=== PATIENT | female | born 1945 | race Caucasian/White ===

== ENCOUNTER → 2016-08-21 | Outpatient (CLI) | payer MEDICARE, OTHER ==
--- NOTE | 2016-08-21 11:02 | CT ---
EXAM DESCRIPTION: CT CHEST WITH IV CONTRAST; CT ABDOMEN PELVIS WITHOUT THEN WITH IV CONTRAST CLINICAL HISTORY: MALIGNANT NEOPLASM OF ASCENDING COLON COMPARISON: CT abdomen pelvis performed on February 04, 2016 TECHNIQUE: CT chest abdomen pelvis was performed with IV contrast. FINDINGS: CT chest: A right-sided MediPort device is present with its tip in the SVC. There are mural calcifications in the thoracic aorta without aneurysm or dissection. No mediastinal or hilar adenopathy. No pleural or pericardial effusion. The central airways are clear. There is no airspace consolidation or lung mass. No suspicious lung nodule is identified. There is no lytic or sclerotic bone lesion. CT abdomen pelvis: There is a 3.9 cm fusiform infrarenal abdominal aortic aneurysm without acute complication, stable or only minimally increased in size from January,. There is no adenopathy, ascites or pneumoperitoneum. No dilated small bowel loops. Postoperative changes are noted in the colon without colonic wall thickening or pericolonic inflammation. The gallbladder is either collapsed or surgically absent. The liver, spleen, pancreas, adrenals and kidneys are unremarkable. There is no lytic or sclerotic bone lesion. Degenerative changes are noted in the lumbar spine at multiple levels including mild scoliosis. IMPRESSION: Postoperative changes in the colon, but no evidence of recurrent or metastatic disease in the chest, abdomen or pelvis. 3.9 cm infrarenal abdominal aortic aneurysm, stable or only slightly increased in size from January,. AAA Size: Follow-upRecommendation1: 2.6-2.9 cm Every 5 years2 3.0-3.4 cm Every 3 years 3.5-3.9 cm Every 1 year 4.0-4.4 cm Every 1 year, vascularconsultation recommended 4.5-5.4 cm Every 6 months,vascular consultation recommended >5.5cm Vascularsurgery consultation recommended 1. J Vasc Surg. 2009Oct;50(4 Suppl):S2-49 2. For aortas with maximum diameter of 2.6-2.9 cmmeeting the criteria for AAA (>50% of proximal normal segment) Electronically signed by: Andrés Momin DO 08/21/2016 10:59
== END ==
LOC: CT 09:33
PROVIDERS: ATTEND Internal Medicine Hematology & Oncology
DX: C18.2 Malignant neoplasm of ascending colon (principal); I71.4 Abdominal aortic aneurysm, without rupture; Z98.890 Other specified postprocedural states

== ENCOUNTER → 2017-03-14 | Outpatient (CLI) | payer MEDICARE, OTHER ==
--- NOTE | 2017-03-15 08:48 | CT ---
EXAM DESCRIPTION: Head w/wo Contrast CLINICAL HISTORY: PAT, MALIGNANT NEOPLASM OF ASCENDING COLON DIAGNOSED 2014 COMPARISON: None available TECHNIQUE: CT brain is performed prior to and following IV administration of nonionic contrast This exam was performed according to our departmental dose-optimization program, which includes automated exposure control, adjustment of the mA and/or kV according to patient size and/or use of iterative reconstruction technique. FINDINGS: Noncontrast imaging at the vertex of the skull on the right demonstrates a large circumscribed oval coarsely partially calcified hyperdense mass that bulges the falx slightly to the left of midline and abuts the bony calvarium and cerebral convex to the likely in the right parieto-occipital region with moderate vasogenic edema and significant mass effect and effacement of at least a portion of the right lateral ventricle. On the axial imaging submitted the mass measures 4.1 x 5.0 cm in size. Incidental note of tumoral calcification on the central supply manager images in the right posterior parietal region is apparent. Postcontrast moderate enhancement of the mass is apparent in the appearance is typical of a large meningioma arising either from the right parieto-occipital cerebral convexity or the adjacent midline falx. No destructive changes of the bony structures is apparent. Further evaluation with MRI of the brain without and with contrast enhancement with three plane postcontrast imaging to fully assess the amount of dural and falx involvement and to assess for additional smaller lesions elsewhere. Additional lesions are not apparent. Modest vasogenic edema at the inferior and anterior margin of this mass with displacement and partial effacement of the trigone region and occipital horn of the right lateral ventricle is evident. Moderate age-related atrophy is apparent with mild ventriculomegaly with additional midline shift not evident except in the area of the mass near the cerebral convexity. IMPRESSION: 1. Abnormal CT of the brain without and with contrast enhancement demonstrating a circumscribed partially calcified 4.1 x 5.0 cm right parieto-occipital convex to the mass with intense enhancement and moderate surrounding vasogenic edema and mass effect with slight bulging of the falx across the midline to the left at the level of the primary mass. A large meningioma arising either from the cerebral convexity and dural surface or the adjacent falx in the right parieto-occipital region is strongly suspected. MRI of the brain without and with contrast enhancement with three plane imaging, particularly on postcontrast imaging to evaluate the degree of dural and falx and/or dural sinus invasion is recommended. Neurosurgical consultation recommended. 2. Moderate age-related atrophy without additional lesions or additional enhancing mass is identified. 3. Modest effacement of the posterior aspect of the right lateral ventricle in the trigone region and occipital horn region. Electronically signed by: Clive Farah MD 03/15/2017 8:47 AM CDT
== END | disposition home or self-care (01) ==
LOC: CT 09:36
PROVIDERS: ATTEND Internal Medicine Hematology & Oncology
DX: R51 Headache (principal)

== ENCOUNTER → 2017-03-27 | Outpatient (CLI) | payer MEDICARE, OTHER | END | disposition home or self-care (01) | LOC: LAB.O 12:05 | DX: K52.89 Other specified noninfective gastroenteritis and colitis (principal); R19.4 Change in bowel habit ==

== ENCOUNTER → 2017-03-28 | Outpatient (CLI) | payer MEDICARE, OTHER ==
--- NOTE | 2017-03-28 11:38 | CT ---
EXAM DESCRIPTION: Abdomen/Pelvis w/Contrast CLINICAL HISTORY: R194 COMPARISON: February 04, 2016 TECHNIQUE: CT of the abdomen and Pelvis was performed with IV contrast. This exam was performed according to our departmental dose-optimization program, which includes automated exposure control, adjustment of the mA and/or kV according to patient size and/or use of iterative reconstruction technique. FINDINGS: There is no lung base abnormality. No pneumoperitoneum, ascites or adenopathy. Is a small hiatal hernia. The gallbladder is either collapsed or surgically absent. There is diffuse fatty infiltration of the liver without focal liver lesion. The spleen, pancreas, adrenals and kidneys are unremarkable. No dilated small bowel loops. There is a fusiform 3.8 cm infrarenal abdominal aortic aneurysm without rupture, leak, dissection or other complication, stable from February 04, 2016. There is a 1.6 cm uncomplicated right common iliac artery aneurysm, also stable. No adenopathy, ascites or pneumoperitoneum. The uterus is not seen, please correlate with surgical history. The ovaries are only tentatively identified. There is no adnexal mass. Postoperative changes are noted in the colon without colonic wall thickening or pericolonic inflammation. There are degenerative changes in lumbar spine multiple levels. IMPRESSION: 3.8 cm fusiform infrarenal abdominal aortic aneurysm without complication, unchanged in size from January,. AAA Size: Follow-up Recommendation : 2.6-2.9 cm Every 5 years 3.0-3.4 cm Every 3 years 3.5-3.9 cm Every 1 year 4.0-4.4 cm Every 1 year, vascular consultation recommended 4.5-5.4 cm Every 6 months, vascular consultation recommended >5.5 cm Vascular surgery consultation recommended 1. J Vasc Surg. 2009 May;50(4 Suppl):S2-49 2. For aortas with maximum diameter of 2.6-2.9 cm meeting the criteria for AAA (>50% of proximal normal segment) 1.6 cm uncomplicated right common iliac artery aneurysm also stable. Electronically signed by: Andrés Momin MD 03/28/2017 11:36 AM CDT Workstation: [id number]
== END | disposition home or self-care (01) ==
LOC: CT 07:42
DX: R19.4 Change in bowel habit (principal)

== ENCOUNTER 2017-04-18 06:23 | Day surgery (SDC) | payer MEDICARE, OTHER ==
[~2017-04-18 06:23] MED LIST: LACTATED RINGERS 1,000 ML ONE
[2017-04-18] MEDS ORDERED: LIDOCAINE 1% 10 ML VIAL INJ ONE (07:00)
[2017-04-18] MEDS ORDERED: PROPOFOL 200 MG/20 ML VIAL IV ONE (07:00)
[2017-04-18] MEDS ORDERED: fentaNYL CITRATE INJ 50 MCG/ML AMP ONE (07:54)
[2017-04-18] MEDS ORDERED: MIDAZOLAM INJ 5 MG/5 ML VIAL ONE (07:54)
--- NOTE | 2017-04-18 08:45 | OP ---
DATE OF PROCEDURE: 04/18/17 PREOPERATIVE DIAGNOSIS: 1. Bright red blood per rectum. 2. Personal history of tubular adenomas. 3. Personal history of colon cancer. 4. Status post right hemicolectomy. POSTOPERATIVE DIAGNOSIS: 1. Status post right hemicolectomy. 2. Descending/sigmoid diverticulosis. 3. Status post two polypectomies using a hot snare, one at 30 cm, one in the rectum. 4. Grade 2 internal hemorrhoids. 5. Patent ileocolonic anastomosis. PROCEDURE: 1. Colonoscopy. SURGEON: Deric Silva MD. ANESTHESIA: MAC. PROCEDURE: Informed consent was obtained prior to sedation. The preprocedure cardiopulmonary assessment was satisfactory. The patient was placed in the left lateral decubitus position and was sedated. The tip of the Olympus colonoscope was inserted in the rectum and guided through the entire colon under direct visualization. An ileocolonic anastomosis was identified at 50 cm. This appeared patent and healthy. The scope was advanced into the ileum, which appeared unremarkable. Slow withdrawal was started at this time. There was evidence of diverticulosis in the descending and sigmoid colon. At around 30 cm from the anal verge, there was a 2-mm flat polyp that was resected and retrieved using a hot snare. In the rectum, there was a 5-mm polyp that was resected and retrieved using a hot snare. Retroflexion view of the anorectal area showed internal hemorrhoids. The scope was then withdrawn from the patient and the procedure was terminated. The prep was good. ESTIMATED BLOOD LOSS: Less than 1 mL. COMPLICATIONS: None. RECOMMENDATION: 1. Followup in GI clinic in four weeks. 2. Watch for complications like bleeding, abdominal pain or other and if any occur, present to the Emergency Room immediately. 3. Regular diet. Resume home medications. Avoid NSAID, aspirin or other blood thinners for a week. #[id number] [facility]
[2017-04-18 15:33] VITALS: BP 124/80; TEMP 96.9; O2SAT 95
== END 2017-04-18 09:40 | disposition home or self-care (01) ==
LOC: AMB 06:23
DX: K62.5 Hemorrhage of anus and rectum (principal); D12.6 Benign neoplasm of colon, unspecified; K62.1 Rectal polyp; K64.1 Second degree hemorrhoids; K57.30 Diverticulosis of large intestine without perforation or abscess without bleeding; K59.1 Functional diarrhea; I10 Essential (primary) hypertension; E78.00 Pure hypercholesterolemia, unspecified; F32.9 Major depressive disorder, single episode, unspecified; E66.3 Overweight; F17.210 Nicotine dependence, cigarettes, uncomplicated; Z68.27 Body mass index [BMI] 27.0-27.9, adult; Z86.010 Personal history of colon polyps; Z90.49 Acquired absence of other specified parts of digestive tract; Z85.038 Personal history of other malignant neoplasm of large intestine; Z88.8 Allergy status to other drugs, medicaments and biological substances; Z79.899 Other long term (current) drug therapy
CPT/HCPCS: 00810; 45385; 88305; J2250; J3010; J3490; J7120

== ENCOUNTER → 2017-06-15 | Outpatient (CLI) | payer MEDICARE, OTHER | END | disposition home or self-care (01) | LOC: LAB.O 12:40 | PROVIDERS: ATTEND Nurse Practitioner Family | DX: E03.9 Hypothyroidism, unspecified (principal) ==

== ENCOUNTER 2017-08-25 08:43 | Emergency (ER) | payer MEDICARE, OTHER ==
[2017-08-25 08:58] VITALS: BP 128/76; TEMP 99; O2SAT 94
--- NOTE | 2017-08-25 09:03 | ED.PDOC ---
History of Present Illness - General Chief Complaint: Eye Problems Stated Complaint: watery,itchy,red eyes Time Seen by Provider: 08/25/17 09:00 Source: patient, RN notes reviewed, Vital Signs reviewed Additional Information: itchy,watery,red eyes that are also matting with green drainage-also ears are ringing. Pt concerned it might be her sinuses. - History of Present Illness Timing/Duration: last week Severity: moderate EENT Location: ear (R), ear (L), nose, throat Prearrival Treatment: no prearrival treatment Improving Factors: nothing Associated Symptoms: facial pain/swelling, fever - subjective, nasal congestion/ drainage, sore throat Allergies/Adverse Reactions: Allergies Morphine Allergy (Intermediate, Verified 06/17/15 20:07) Hives Codeine Allergy (Verified 06/17/15 20:07) Hydroxyzine Allergy (Verified 06/17/15 20:07) Home Medications: Ambulatory Orders Levothyroxine Sodium 75 mcg PO ACBK 03/03/15 Albuterol Sulfate [Proair Hfa] 2 puff INH PRN 08/24/15 Hydrochlorothiazide 25 mg PO DAILY 08/24/15 Lovastatin 20 mg PO BEDTIME 08/24/15 Metoprolol Tartrate 100 mg BID 03/27/16 Doxycycline Hyclate 100 mg PO BID 7 Days #14 cap 08/25/17 Fluticasone Prop 0.05% Nasal [Flonase Nasal [place]] 1 spray BNAS DAILY 14 Days # 1 bottle 08/25/17 Review of Systems - Review of Systems Constitutional: States: see HPI, chills, fever EENTM: States: see HPI, eye pain, ear pain, nose congestion, throat pain Respiratory: States: no symptoms reported Cardiology: States: no symptoms reported Gastrointestinal/Abdominal: States: no symptoms reported Genitourinary: States: no symptoms reported Musculoskeletal: States: no symptoms reported Skin: States: no symptoms reported Neurological: States: no symptoms reported Endocrine: States: no symptoms reported Hematologic/Lymphatic: States: no symptoms reported Past Medical History (General) - Patient Medical History Hx Seizures: No Hx Stroke: No Hx Dementia: No Hx Asthma: Yes Hx of COPD: No Hx Cardiac Disorders: No Hx Congestive Heart Failure: No Hx Pacemaker: No Hx Hypertension: Yes Hx Thyroid Disease: No Hx Diabetes: No Hx Gastroesophageal Reflux: Yes Hx Renal Disease: No Hx Cancer: Yes - CA Hx of HIV: No Hx Hepatitis C: No Hx MRSA: No - Vaccination History Hx Tetanus, Diphtheria Vaccination: Yes Hx Influenza Vaccination: Yes Hx Pneumococcal Vaccination: Yes - Social History Hx Tobacco Use: Yes Hx Chewing Tobacco Use: No Hx Alcohol Use: No Hx Substance Use: No Hx Substance Use Treatment: No Hx Depression: No Hx Physical Abuse: No Hx Emotional Abuse: No Hx Suspected Abuse: No - Female History Patient : No Family Medical History - Family History Mother Family History: Unknown Living Status: Hx Family Congestive Heart Failure: Yes Physical Exam - Physical Exam General Appearance: Alert, Comfortable, No apparent distress Eye Exam: bilateral other - conjunctival injection, no drainage Ear Exam: bilateral ear: auricle normal, canal normal, TM normal Nasal Exam: discharge - clear/green rhinorhea, sinus tenderness - frontal Throat Exam: other - posterior oropharynx with mild erythema and postnasal drip Neck: non-tender, full range of motion, supple Cardiovascular/Respiratory: regular rate, rhythm, normal peripheral pulses, normal breath sounds, no respiratory distress Abdominal Exam: non-tender Neurologic: neurology technician II-XII nml as tested, no motor/sensory deficits, alert, normal mood/affect, oriented x 3 Skin Exam: normal color Progress - Progress Progress: 08/25/17 09:16 Signs and symptoms consistent with sinusitis. Pt is afebrile and nontoxic at this time. Pt ok to be discharged with Rx for Doxycycline (given duration of symptoms - over 1 week) and Flonase as well as recommendation for pt to use OTC Tylenol cold and sinus. Strict return precautions given as well. Departure - Departure Clinical Impression: Sinusitis Qualifiers: Sinusitis location: unspecified location Chronicity: acute Recurrence: non- recurrent Qualified Code(s): J01.90 - Acute sinusitis, unspecified Time of Disposition: 09:15 Disposition: Discharge to Home or Self Care Condition: Good Departure Forms: ED Discharge - Pt. Copy, Patient Portal Self Enrollment Instructions: DI for Sinusitis, Smoking Cessation for Older Adults: It's Not Too Late! Referrals: Patsy Sheldon FINISHING MACHINE OPERATOR [Primary Care Provider] - 1 Week Prescriptions: Doxycycline Hyclate 100 mg PO BID 7 Days #14 cap Fluticasone Prop 0.05% Nasal [Flonase Nasal [place]] 1 spray BNAS DAILY 14 Days # 1 bottle Home Medications: Ambulatory Orders Levothyroxine Sodium 75 mcg PO ACBK 03/03/15 Albuterol Sulfate [Proair Hfa] 2 puff INH PRN 08/24/15 Hydrochlorothiazide 25 mg PO DAILY 08/24/15 Lovastatin 20 mg PO BEDTIME 08/24/15 Metoprolol Tartrate 100 mg BID 03/27/16 Doxycycline Hyclate 100 mg PO BID 7 Days #14 cap 08/25/17 Fluticasone Prop 0.05% Nasal [Flonase Nasal [place]] 1 spray BNAS DAILY 14 Days # 1 bottle 08/25/17 Additional Instructions: Take medicine as prescribed. Ok to take over the counter Tylenol Cold and Flu or Tylenol Sinus as directed on label. Stay well hydrated with water and soup. Follow-up with Primary Care Provider if unimproved in 5 to 7 days or sooner if condition worsens.
== END 2017-08-25 09:16 | disposition home or self-care (01) ==
LOC: ER 08:43
DX: J01.90 Acute sinusitis, unspecified (principal); I10 Essential (primary) hypertension; K21.9 Gastro-esophageal reflux disease without esophagitis; Z87.891 Personal history of nicotine dependence

== ENCOUNTER → 2018-07-01 | Outpatient (CLI) | payer MEDICARE, OTHER | LOC: LAB.O 08:15 | PROVIDERS: ATTEND Nurse Practitioner Family | DX: E78.2 Mixed hyperlipidemia (principal); I10 Essential (primary) hypertension; E03.9 Hypothyroidism, unspecified ==

== ENCOUNTER → 2018-07-10 | Outpatient (CLI) | payer MEDICARE, OTHER ==
--- NOTE | 2018-07-10 13:36 | CT ---
EXAM DESCRIPTION: Abdomen/Pelvis w/Contrast: Computed Tomography. CLINICAL HISTORY: ABDOMINAL AORTIC ANEURYSM COMPARISON: CT scan of the abdomen and pelvis with contrast 03/28/2017 TECHNIQUE: Spiral-axial scans at 5 x 5 mm intervals through the abdomen and pelvis, after nonionic IV contrast without oral contrast. Coronal and sagittal 2.0 mm delayed reconstructions. Delayed scans, liver through the pelvis. Axial-spiral 5mm. No adverse reactions. Total Exam DLP: 2013.91 mGy-cm. This exam was performed according to our departmental dose-optimization program which includes automated exposure control, adjustment of the mA and/or kV according to patient size and/or use of iterative reconstruction technique; to reduce radiation dose to as low as reasonably achievable (ALARA). FINDINGS: Lung bases and pleura: Negative. Liver, Stomach, Spleen, Adrenal Glands: Small sliding hiatal hernia the stomach. Liver spleen and adrenal glands are unremarkable. Pancreas, Gallbladder, Ducts: The gallbladder is seen. Borderline dilation of the common bile duct. Minimal fatty invasion of the pancreas. Kidneys and Ureters: Left kidney slightly larger. Question of cortical atrophy right kidney no hydronephrosis or radiodense stones. Mesentery: No large fluid collections fatty stranding or fascial thickening. Aorta: 3.1 x 2.4 centimeters at the origin of the SMA and 2.9 x 2.7 cm at the origin of the celiac axis. Atherosclerotic calcification of the ostia. Also intimal wall thickening. Atherosclerotic calcification also around the origin of the SMA. Intimal wall thickening and tortuosity of the aorta between this level in the origin of the renal arteries. Bilateral single renal arteries. Diameter 3.0 x 2.8 cm outer wall, below the origins of the renal arteries. This dilated segment is approximately 8.7 cm long, with maximum dimensions 4.1 x 2.9 cm, outer wall. 3.1 x 2.6 cm, and outer wall dimensions at the origin of the REMI. Most of the velazquez of the aneurysm is calcified with minimal intimal thickening, and the lumen is only slightly narrower than the outer wall. No para-aortic soft tissue mass or contrast extravasation. Bilateral dilated common iliac arteries more right than left with intimal wall thickening medial right common iliac artery.. Small Bowel: No significant distention. Jejunum is noted along the left sided abdomen with descending colon near the midline. Terminal Ileum/Cecum: Not seen and believed to have been resected previously with direct distal ileum. No mass or abnormal fatty mesenteric changes at the anastomosis. Colon: Proximal colon minimally distended by fluid. Colon is shortened and descends adjacent to the aorta just to the left of midline to begin the sigmoid colon and rectosigmoid. Diverticula are present without complications. Distal ileum with the ascending colon Pelvic Organs: No adnexal mass or fluid. Vaginal cuff unremarkable. Urinary bladder contracted. Spine and Bony Pelvis: Decreased bone density. Spondylosis in the thoracic spine and upper lumbar spine. Air density in some of the disc spaces with arthrosis of the facets. Narrowing of the bilateral hip joints with prominent acetabulum and minimal over coverage. No blastic or lytic lesions. Abdominal Wall/Back Soft Tissues: Minimal diastases of the umbilicus but no bowel hernia. Stable postsurgical changes around the umbilicus. Also diastases midline at the T12 level with the gastric antrum migrating forward in the midline, mass effect on the subcutaneous layer but no definite herniation. IMPRESSION: 1. Abdominal aortic aneurysm has enlarged slightly at its widest diameter now measuring 4.1 x 3.9 cm, compared to 3.9 x 3.6 cm on the prior study. Minimal intimal wall thickening with the lumen almost the same caliber as the outer wall. Length of the aneurysmal segment is unchanged. Significant atherosclerotic calcification ostia of the major branch vessels from the aorta. Dilation of the bilateral common iliac arteries more on the right than the left. [facility] Best Practice recommendations for follow-up aortic imaging would be noted below.* Yearly imaging follow-up and vascular consult if not previously recommended. 2. Again noted are postsurgical changes in the proximal colon anastomosis with the distal ileum and minimal distention of the proximal colon by fluid with shortening of the transverse colon and descending colon. Diverticulosis without complications. Stable small sliding hiatal hernia in the stomach. 3. Forward migration of the distal stomach against the anterior abdominal wall raphe and abutting the anterior subcutaneous layer without definite bowel herniation. *AAA Size: Follow-up Recommendation (1): 2.6 - 2.9 cm Every 5 years (2) 3.0 - 3.4 cm Every 3 years 3.5 - 3.9 cm Every 12 months 4.0 - 4.4 cm Every 12 months, vasc consult rec 4.5 - 5.4 cm Every 6 months, vasc consult rec >=5.5 cm Referral to vascular surgeon recommended (1)Based upon the Society for Vascular Surgery Guidelines: J Vasc Surgery 2009 May; 50(4 Supplemental):S2-49 (2)For aortas of [place] of 2.6-2.9 cm that meet criteria for AAA (>= 1.5 x proximal normal segment) Electronically signed by: Saul Nguyen MD 07/10/2018 1:35 PM [facility]
== END ==
LOC: CT 09:30
PROVIDERS: ATTEND Nurse Practitioner Family
DX: I71.4 Abdominal aortic aneurysm, without rupture (principal); K44.9 Diaphragmatic hernia without obstruction or gangrene; K57.30 Diverticulosis of large intestine without perforation or abscess without bleeding

== ENCOUNTER → 2018-07-16 | Outpatient (CLI) | payer MEDICARE, OTHER ==
--- NOTE | 2018-07-16 18:48 | MAM ---
EXAM DESCRIPTION: 3D Screening BILATERAL : Digital Mammography. CLINICAL HISTORY: 73 years Female SCREENING . No complaints. No personal history of breast cancer. Remote family history of breast cancer. Childbirth. Postmenopausal 49 years. HRT 5 or more years ago. Prior right breast biopsy.. Lifetime risk of developing breast cancer (Tyrer-Cuzick model)(%): 4.6. COMPARISON: 2-D digital screening bilateral mammography 06/14/2016. Injection port for venous access device partially obscures the upper right breast in the right pectoral muscle on the MLO image.. No prior reports available. TECHNIQUE: Bilateral CC and MLO projection full-field images, digital tomosynthesis mammographic technique. Bilateral digital 2-D full-field MLO images. CAD not available for tomosynthesis or 2-D images. FINDINGS: The breast parenchymal density pattern is: Almost entirely fatty. No skin thickening or nipple retraction. Bilateral solitary microcalcifications. No new focal, stellate mass or density, focal asymmetry , and no suspicious microcalcifications bilaterally. Stable mammograms compared to prior study. Taking into account, differences in mammographic technique. IMPRESSION: Benign exam. BIRAD CATEGORY: 2 BENIGN FINDINGS. RECOMMENDATIONS: FOLLOW UP: Routine digital bilateral mammographic screening, one year interval from July 2018. Written communication explaining the IMPRESSION and follow-up, will be mailed to the patient and referring health care provider. According to the [employer], yearly mammograms are recommended starting at age 40 and continuing as long as a woman is in good health. Any breast change noted on a breast self-exam should be reported promptly to the patient's healthcare provider. Breast MRI is recommended for women with an approximately 20-25% or greater lifetime risk of breast cancer, including women with a strong family history of breast or ovarian cancer and women who have been treated for Hodgkin's disease. A negative mammographic report should not delay tissue diagnosis in patients with significant clinical history or physical findings. Extremely dense breast tissue limits the sensitivity of digital mammography. Electronically signed by: Saul Nguyen MD 07/16/2018 6:46 PM PROJECT MANAGER INTERIOR DESIGN
== END ==
LOC: MAMMO 14:00
PROVIDERS: ATTEND Nurse Practitioner Family
DX: Z12.31 Encounter for screening mammogram for malignant neoplasm of breast (principal)

== ENCOUNTER 2018-08-12 13:57 | Emergency (ER) | payer MEDICARE, OTHER ==
--- NOTE | 2018-08-12 14:58 | CT ---
Study: CT of the Head. Indication: temporary blindness Technique: Axial CT images of the head were acquired without intravenous contrast. This exam was performed according to our departmental dose-optimization program, which includes automated exposure control, adjustment of the mA and/or kV according to patient size and/or use of iterative reconstruction technique. Comparison: March 14, 2017. Findings: Again noted is a partially calcified 5 cm ovoid right parafalcine extra-axial mass posteriorly most consistent with a meningioma. Grade of surrounding edema within the right frontoparietal lobes appears stable as does the degree of mass effect. Mild right to left midline shift superiorly. Stable as well. Ventricles are stable and symmetric without hydrocephalus. No acute ischemia, acute hemorrhage, or extra-axial fluid collection identified by CT. Ventricles are normal in configuration without hydrocephalus. Patchy hypoattenuation of the periventricular and subcortical white matter noted. This is nonspecific but most consistent with chronic microvascular ischemic change. Global parenchymal volume loss and intracranial atherosclerosis noted as well. Paranasal sinuses are adequately aerated. Mastoid air cells are adequately aerated. Osseous structures and soft tissues are unremarkable. Impression: 1. Stable right parafalcine extra-axial mass consistent with meningioma. The degree of mass effect and the surrounding vasogenic edema appear stable as well. No new complicating features are identified. Electronically signed by: Juma Gann MD 08/12/2018 2:57 PM ELECTROMECHANICAL ENGINEER
[2018-08-12] MEDS ORDERED: ASPIRIN TABLET 325 MG TAB PO ONE (15:17)
--- NOTE | 2018-08-12 15:33 | RAD ---
EXAM DESCRIPTION: Chest,1 View CLINICAL HISTORY: stroke protocol COMPARISON: 17 June 2015 TECHNIQUE: AP portable chest FINDINGS: An Wzxwmy-f-Tnep catheter seen in place on the patient's right with the catheter in the region of the superior vena cava. The port is observed in the mid chest. The lungs are clear. The heart is at the upper limits of normal in size. No pleural fluid is seen. IMPRESSION: 1. An Kmjvfh-m-Foxa catheter is again observed in place with position unchanged. 2. The heart is at the upper limits of normal. The chest is otherwise unremarkable. Electronically signed by: Christofer Richardson MD 08/12/2018 3:32 PM DEPUTY DISTRICT CUSTOMS DIRECTOR
--- NOTE | 2018-08-12 16:28 | ED.PDOC ---
History of Present Illness - General Chief Complaint: Neuro Symptoms/Deficits Stated Complaint: transient blindness Time Seen by Provider: 08/12/18 14:15 Source: patient Exam Limitations: no limitations - History of Present Illness Initial Comments: Patient presents after having bilateral blindness for about 4 minutes. Sudden onset. Slowly cleared up after about 5 minutes. She has never had any previous episodes. Denies previous cardiac disease. No history of CVA. She does take a "cholesterol" medication. She has a meningioma that has been stable for 18 months. No other complaints. Timing/Duration: 1-3 hours Severity: moderate Improving Factors: nothing Worsening Factors: nothing Associated Symptoms: denies symptoms Allergies/Adverse Reactions: Allergies Morphine Allergy (Intermediate, Verified 06/17/15 20:07) Hives Codeine Allergy (Verified 06/17/15 20:07) Hydroxyzine Allergy (Verified 06/17/15 20:07) Home Medications: Ambulatory Orders Levothyroxine Sodium 75 mcg PO ACBK 03/03/15 Albuterol Sulfate [Proair Hfa] 2 puff INH PRN 08/24/15 Hydrochlorothiazide 25 mg PO DAILY 08/24/15 Lovastatin 20 mg PO BEDTIME 08/24/15 Metoprolol Tartrate 100 mg BID 03/27/16 Citalopram Hydrobromide [Citalopram] 10 mg PO DAILY 08/12/18 Review of Systems - Review of Systems Constitutional: States: no symptoms reported EENTM: States: no symptoms reported Respiratory: States: no symptoms reported Cardiology: States: no symptoms reported Gastrointestinal/Abdominal: States: no symptoms reported Genitourinary: States: no symptoms reported Skin: States: no symptoms reported Neurological: States: see HPI Endocrine: States: no symptoms reported Past Medical History (General) - Patient Medical History Hx Seizures: No Hx Stroke: No Hx Dementia: No Hx Asthma: Yes Hx of COPD: No Hx Cardiac Disorders: No Hx Congestive Heart Failure: No Hx Pacemaker: No Hx Hypertension: Yes Hx Thyroid Disease: No Hx Diabetes: No Hx Gastroesophageal Reflux: Yes Hx Renal Disease: No Hx Cancer: Yes - Colon Hx of HIV: No Hx Hepatitis C: No Hx MRSA: No - Vaccination History Hx Tetanus, Diphtheria Vaccination: Yes Hx Influenza Vaccination: Yes Hx Pneumococcal Vaccination: Yes - Social History Hx Tobacco Use: Yes Hx Chewing Tobacco Use: No Hx Alcohol Use: No Hx Substance Use: No Hx Substance Use Treatment: No Hx Depression: No Hx Physical Abuse: No Hx Emotional Abuse: No Hx Suspected Abuse: No - Female History Patient : No Family Medical History - Family History Mother Family History: Unknown Living Status: Hx Family Congestive Heart Failure: Yes Physical Exam - Physical Exam General Appearance: Alert Eye Exam: bilateral normal Ears, Nose, Throat: hearing grossly normal, normal ENT inspection Neck: non-tender, full range of motion, supple Respiratory: lungs clear, normal breath sounds Cardiovascular/Chest: normal peripheral pulses, regular rate, rhythm, no edema Gastrointestinal/Abdominal: normal bowel sounds, non tender, soft Back Exam: normal inspection, no CVA tenderness Extremity: normal range of motion, non-tender, normal inspection, no pedal edema Neurologic: economic analysis director II-XII nml as tested, no motor/sensory deficits, alert, normal mood/affect, oriented x 3 Skin Exam: normal color Lymphatic: no adenopathy Progress - Progress Progress: 08/12/18 16:28 CT head showed stable meningioma compared with 03/2017. Laboratory Tests 08/12/18 08/12/18 08/12/18 14:14 14:26 14:26 WBC 5.1 RBC 4.49 Hgb 13.3 Hct 39.9 MCV 88.9 MCH 29.6 MCHC 33.3 RDW 15.2 H Plt Count 134 MPV 7.7 Absolute Neuts (auto) 2.70 Absolute Lymphs (auto) 1.80 Absolute Monos (auto) 0.50 Absolute Eos (auto) 0.10 Absolute Basos (auto) 0.00 Neutrophils % 53.5 Lymphocytes % 35.0 Monocytes % 9.3 H Eosinophils % 1.6 Basophils % 0.6 PT 9.4 INR 0.94 PTT (SP) 24.4 Sodium Potassium Chloride Carbon Dioxide Anion Gap BUN Creatinine BUN/Creatinine Ratio POC Glucose 126 H Random Glucose Serum Osmolality Calcium Total Bilirubin AST ALT Alkaline Phosphatase Creatine Kinase CK-MB (CK-2) CK-MB (CK-2) % Troponin I Serum Total Protein Albumin Globulin Albumin/Globulin Ratio 08/12/18 08/12/18 14:26 15:28 WBC RBC Hgb Hct MCV MCH MCHC RDW Plt Count MPV Absolute Neuts (auto) Absolute Lymphs (auto) Absolute Monos (auto) Absolute Eos (auto) Absolute Basos (auto) Neutrophils % Lymphocytes % Monocytes % Eosinophils % Basophils % PT INR PTT (SP) Sodium 140 Potassium 3.7 Chloride 102 Carbon Dioxide 31 Anion Gap 10.7 L BUN 16 Creatinine 1.09 BUN/Creatinine Ratio 14.7 POC Glucose Random Glucose 112 H Serum Osmolality 281.3 Calcium 9.6 Total Bilirubin 0.7 AST 22 ALT 18 Alkaline Phosphatase 73 Creatine Kinase 70 CK-MB (CK-2) 1.3 CK-MB (CK-2) % Not Reportable Troponin I < 0.02 Serum Total Protein 6.9 Albumin 3.8 Globulin 3.1 Albumin/Globulin Ratio 1.2 Labs unremarkable. Likely a TIA. Patient given ASA 325 mg po x one and transferred to [facility]. Departure - Departure Clinical Impression: TIA (transient ischemic attack) Disposition: Transfer to Hospital Condition: Good Departure Forms: ED Discharge - Pt. Copy, Patient Portal Self Enrollment Diet: other - NPO Activity: other - as per inpatient doctor Referrals: Patsy Sheldon, [employer] [Primary Care Provider] - 1-2 Weeks Home Medications: Ambulatory Orders Levothyroxine Sodium 75 mcg PO ACBK 03/03/15 Albuterol Sulfate [Proair Hfa] 2 puff INH PRN 08/24/15 Hydrochlorothiazide 25 mg PO DAILY 08/24/15 Lovastatin 20 mg PO BEDTIME 08/24/15 Metoprolol Tartrate 100 mg BID 03/27/16 Citalopram Hydrobromide [Citalopram] 10 mg PO DAILY 08/12/18
[2018-08-12] MEDS ORDERED: METOPROLOL TARTRATE INJ 5 MG/5 ML VIAL IV ONE (16:36)
[2018-08-12] MEDS ORDERED: LORazepam 0.5 MG TAB ONE (17:40)
[2018-08-12] MEDS ORDERED: LORazepam 0.5 MG TAB PO ONE (18:39)
[2018-08-12 18:50] VITALS: BP 179/98; TEMP 98.4; O2SAT 97
== END 2018-08-12 17:35 | disposition short-term general hospital (02) ==
LOC: ER 13:57
DX: G45.9 Transient cerebral ischemic attack, unspecified (principal); J45.909 Unspecified asthma, uncomplicated; I10 Essential (primary) hypertension; K21.9 Gastro-esophageal reflux disease without esophagitis; Z85.038 Personal history of other malignant neoplasm of large intestine; Z87.891 Personal history of nicotine dependence; Z79.899 Other long term (current) drug therapy; Z88.5 Allergy status to narcotic agent; Z88.8 Allergy status to other drugs, medicaments and biological substances

== ENCOUNTER → 2019-09-12 | Outpatient (CLI) | payer MEDICARE, OTHER ==
--- NOTE | 2019-09-15 16:11 | MAM ---
EXAM DESCRIPTION: 3D Screening BILATERAL : Digital Mammography. CLINICAL HISTORY: 74 years Female SCREENING . No complaints. No personal history of breast cancer. Remote family history of breast cancer. Menarche age 11. Childbirth age 21. Menopause age 26. HRT 5 or more years ago. Lifetime risk of developing breast cancer (Tyrer-Cuzick model)(%): 4.3. COMPARISON: Bilateral screening digital breast tomosynthesis July 2018 and 2-D digital screening bilateral mammography June 2016. TECHNIQUE: Bilateral CC and MLO projection full-field images, digital tomosynthesis mammographic technique. Bilateral digital 2-D full-field MLO images. CAD available for 2-D images. FINDINGS: The breast parenchymal density pattern is: Almost entirely fatty. No skin thickening or nipple retraction. Bilateral scattered solitary microcalcifications. Medication infusion port partially obscures the axillary tail of the right breast on the MLO projection. Axillary lymph nodes. Stable left retroareolar mass without calcifications. No new focal, stellate mass or density, focal asymmetry , and no suspicious microcalcifications bilaterally. Stable mammograms compared to prior study. IMPRESSION: Benign exam. BIRAD CATEGORY: 2 BENIGN FINDINGS. RECOMMENDATIONS: FOLLOW UP: Routine digital bilateral mammographic screening, one year interval from August 2019. Written communication explaining the IMPRESSION and follow-up, will be mailed to the patient and referring health care provider. According to the [employer], yearly mammograms are recommended starting at age 40 and continuing as long as a woman is in good health. Any breast change noted on a breast self-exam should be reported promptly to the patient's healthcare provider. Breast MRI is recommended for women with an approximately 20-25% or greater lifetime risk of breast cancer, including women with a strong family history of breast or ovarian cancer and women who have been treated for Hodgkin's disease. A negative mammographic report should not delay tissue diagnosis in patients with significant clinical history or physical findings. Extremely dense breast tissue limits the sensitivity of digital mammography. Electronically signed by: Saul Nguyen MD 09/15/2019 4:10 PM SUPERVISOR/PORT DIRECTOR
== END ==
LOC: MAMMO 13:17
PROVIDERS: ATTEND Nurse Practitioner Family
DX: Z12.31 Encounter for screening mammogram for malignant neoplasm of breast (principal)

== ENCOUNTER → 2020-06-09 | Outpatient (CLI) | payer MEDICARE, OTHER ==
--- NOTE | 2020-06-09 11:09 | CT ---
EXAM DESCRIPTION: Head: Computed Tomography. CLINICAL HISTORY: TEMPORAL HEADACHE. Right occipital lobe meningioma. COMPARISON: CT scans of the head without contrast July 2018 and April 2017. TECHNIQUE: Non-helical axial scans through the skull and brain, at 5 x 20 mm intervals, non-contrast. Coronal and sagittal reconstructions. Total Exam DLP: 753 mGy-cm. This exam was performed according to our departmental dose-optimization program which includes automated exposure control, adjustment of the mA and/or kV according to patient size and/or use of iterative reconstruction technique; to reduce radiation dose to as low as reasonably achievable (ALARA). FINDINGS: Again noted is a partially calcified extra-axial mass in the vertical aspect of the right occipital lobe with probable origin from the superior meninges, reflected by bone density changes in the overlying parasagittal occipital bone on this exam and prior exams. Dimensions are 4.8 x 4.1 cm in the axial plane and 4.1 cm in the craniocaudal dimension, equal to or possibly slightly smaller than the prior studies. Mass effect on the right occipital lobe in the posterior falx with minimal subfalcine shift posteriorly. Periventricular white matter edema extending inferiorly in the occipital lobe and parietal lobe to the level of the occipital horn of the right lateral ventricle which is also stable. Minimal effacement of adjacent cortical sulci in the right occipital and parietal lobes. No intra-axial hemorrhage, no new mass-effect, and no new midline shift. Bilateral periventricular white matter density loss in addition to the chronic white matter edema described above, showing no significant interval change. No abnormal radiodense material in the brain parenchyma. Vascular calcifications anterior and posterior circulations stable; physiologic calcifications in the pineal gland and choroid plexus. No new effacement or displacement of the ventricles, CSF spaces, or subdural spaces. Ventricular system remains mildly prominent. Cerebellar atrophy again noted bilaterally symmetric. No extra axial fluid collection or hemorrhage. No gross abnormalities of the bony calvarium. Bilateral symmetric thickening of the frontal bone internal table, and focal thickening of the outer table of the left frontal bone is stable. Included paranasal sinuses and mastoid air cells are well - aerated. IMPRESSION: 1. Stable meningioma in the upper right occipital lobe, originating from the overlying occipital meninges, almost 5 cm in diameter compared to prior studies July 2018 and March 2017. Posterior subfalcine shift, focal mass effect, and white matter edema in the right occipital lobe and parietal lobe is unchanged. No new extra-axial or intra-axial masses. 2. Stable bilateral symmetric periventricular white matter density loss consistent with cerebral microvascular disease or aging. Also stable cortical atrophy, central atrophy, and cerebellar atrophy. Stable mild hyperostosis frontalis interna, and hyperostosis left frontalis externa. 2. CT scans are insensitive for detecting small CVAs in the first 24 hours after onset. Evaluation of the brain stem is also limited. If symptoms persist, consider NON-EMERGENT MRI scan of the brain with diffusion imaging. Electronically signed by: Saul Nguyen MD 06/09/2020 11:07 AM CDT
== END ==
LOC: CT 10:11
PROVIDERS: ATTEND Nurse Practitioner Family
DX: R51.9 Headache, unspecified (principal); D32.0 Benign neoplasm of cerebral meninges; R90.82 White matter disease, unspecified; G31.9 Degenerative disease of nervous system, unspecified; R60.0 Localized edema; M85.2 Hyperostosis of skull

== ENCOUNTER → 2020-08-25 | Outpatient (CLI) | payer MEDICARE, OTHER ==
--- NOTE | 2020-08-26 10:43 | RAD ---
EXAM DESCRIPTION: Abdomen Flat Upright CLINICAL HISTORY: 75 years Female, DIARRHEA, WEIGHT LOSS COMPARISON: CT abdomen and pelvis 07/10/2018. Radiograph 03/27/2016 TECHNIQUE: 2 view radiograph of the abdomen. IMPRESSION: Clear lung bases. Nondilated bowel gas pattern. 2 mm calcific density overlying the left renal shadow, unchanged from 03/27/2016. This likely corresponds to a vascular calcification of the left kidney when compared to CT abdomen and pelvis 07/10/2018. Unchanged surgical clips overlying the central abdomen may be from prior hernia repair. Lumbar spondylosis Electronically signed by: Nando Henning MD 08/26/2020 10:41 AM [facility]
== END ==
LOC: RAD 13:51
PROVIDERS: ATTEND Surgery
DX: R14.3 Flatulence (principal); N28.9 Disorder of kidney and ureter, unspecified; M47.896 Other spondylosis, lumbar region; R10.817 Generalized abdominal tenderness

== ENCOUNTER → 2020-09-01 | Outpatient (CLI) | payer MEDICARE, OTHER ==
--- NOTE | 2020-09-01 20:56 | CT ---
EXAM: CTA Abdomen (accession [id number]), CTA Pelvis (accession [id number]) INDICATION: ABDOMINAL AORTIC ANEURYSM W/O RUPTURE . COMPARISON: CT abdomen pelvis with contrast 07/10/2018 TECHNIQUE: CT angiogram of the abdomen and pelvis was performed following the administration of IV contrast. Multiple axial images and multiplanar reconstructions were generated. MIPS reconstructed images and 3-D volume rendered reconstructions were also performed and interpreted. This exam was performed according to our departmental dose-optimization program, which includes automated exposure control, adjustment of the mA and/or kV according to patient size and/or use of iterative reconstruction technique. VASCULAR FINDINGS: Severe atherosclerosis in the abdomen and pelvis. A large infrarenal abdominal aortic aneurysm has increased in size when compared to the prior examination of 07/10/2018. The aneurysm now measures up to approximately 5 cm in greatest AP dimension (axial series 2 image 87). Irregular mural thrombus has also significantly increased since the prior study. No apparent dissection. Mild to moderate stenosis at the origin of the celiac artery due to atherosclerotic plaque. 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 Mild atherosclerotic plaque at the origin of the superior mesenteric artery without hemodynamically significant stenosis. Moderate to severe stenosis at the origin and proximal segment of the single right renal artery. Moderate to severe stenosis of the origin of the left single left renal artery. The inferior mesenteric artery is not confidently identified. 1.8 x 1.2 cm saccular aneurysm projecting from the medial aspect of the right common iliac artery (axial series 2 image 116). Moderate to severe multifocal atherosclerotic plaque in the iliac arterial systems bilaterally. No occlusion. NONVASCULAR FINDINGS: Visualized chest: The visualized lung bases are clear. Heart size is within normal limits. Liver: Unremarkable appearance of the liver. Gallbladder: The gallbladder is not identified and is presumably surgically absent. Pancreas: Unremarkable appearance of the pancreas. Spleen: Unremarkable appearance of the spleen. Adrenal glands: Unremarkable appearance of the adrenal glands. Kidneys, ureters, bladder: No striated nephrograms or hydronephrosis. No obstructing renal stones. Unremarkable appearance of the visualized portions of the ureters. Unremarkable appearance of the urinary bladder, which is mostly collapsed. Stomach and bowel: Unremarkable appearance of the stomach. No dilated loops of small bowel. Postoperative changes in the colon. The appendix is not identified although there are no focal inflammatory changes in the right lower quadrant to suggest appendicitis. Uterus and adnexa: The uterus is either atrophic or surgically absent. Correlate with surgical history. No adnexal mass. Peritoneum: No free fluid. No pneumoperitoneum. Lymph nodes: No lymphadenopathy. Bones: No acute fracture. No destructive osseous lesion. Degenerative changes in the spine and hips. Body wall: Postoperative changes in the anterior abdominal wall. IMPRESSION: 1. Since the prior CT abdomen pelvis of 07/10/2018, an infrarenal abdominal aortic aneurysm has significantly increased in size, now measuring up to approximately 5 cm in greatest AP dimension on today's study. Irregular mural thrombus associated with this aneurysm has also significantly increased. Recommend follow-up imaging every 6 months and vascular consultation. (J Am Brianna Radiol 2013;10 (10):789-794.) 2. 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 3. Mild to moderate stenosis at the origin of the celiac artery due to atherosclerotic plaque. J-shaped configuration of the celiac artery is noted due to compression by the diaphragmatic hernia. This configuration can be seen in median arcuate ligament syndrome in the appropriate clinical setting. 4. Moderate to severe stenosis at the origins of the renal arteries bilaterally. 5. The inferior mesenteric artery is not confidently identified. 6. Additional stable nonvascular findings as described above. Electronically signed by: Livier Fitzgerald MD 09/01/2020 8:55 PM RN INFORMATICS
== END ==
LOC: CT 09:17
PROVIDERS: ATTEND Surgery
DX: I71.4 Abdominal aortic aneurysm, without rupture (principal); I72.3 Aneurysm of iliac artery; I77.4 Celiac artery compression syndrome; I70.8 Atherosclerosis of other arteries; K44.9 Diaphragmatic hernia without obstruction or gangrene; I70.1 Atherosclerosis of renal artery

== ENCOUNTER → 2020-09-13 | Outpatient (CLI) | payer MEDICARE, OTHER ==
--- NOTE | 2020-09-14 16:10 | MAM ---
EXAM DESCRIPTION: 3D Screening BILATERAL : Digital Mammography. CLINICAL HISTORY: 75 years Female screening no complaints. Remote family history of breast cancer. Menarche age 11. Childbirth age 21. Postmenopausal age unknown. HRT 5 or more years ago.. Lifetime risk of developing breast cancer (Tyrer-Cuzick model)(%): 3.8. COMPARISON: Bilateral screening digital breast tomosynthesis August 2019 and July 2018. TECHNIQUE: Bilateral CC and MLO projection full-field images, digital tomosynthesis mammographic technique. Bilateral digital 2-D full-field MLO images. CAD available for 2-D images. FINDINGS: The breast parenchymal density pattern is: Almost entirely fatty. VAD injection port is then removed from the superior lateral right breast. Solitary microcalcifications. Unusual soft tissue density containing calcifications overlying the posterior medial breast on the right cc views, approximately T10-11 centimeters from the nipple. Tomosynthesis images show that this is located in the upper inner quadrant of the right breast. This may be residual scar tissue from prior location of the VAD injection port. Groups of benign type calcifications. No skin thickening or nipple retraction No new focal, stellate mass or density, focal asymmetry , and no suspicious microcalcifications left breast. IMPRESSION: BI-RADS CATEGORY: 0 - INCOMPLETE- Need additional imaging evaluation. RECOMMENDATIONS: FOLLOW-UP: Recall for additional imaging: Ultrasound of the region of interest posterior third, upper inner quadrant, medial right breast.. Option of right breast digital diagnostic tomosynthesis depending on ultrasound findings. Written communication concerning the IMPRESSION and Follow-up, will be mailed to the patient and referring health care provider. Electronically signed by: Saul Nguyen MD 09/14/2020 4:08 PM [facility]
== END ==
LOC: MAMMO 08:50
PROVIDERS: ATTEND Nurse Practitioner Family
DX: Z12.31 Encounter for screening mammogram for malignant neoplasm of breast (principal)

== ENCOUNTER → 2020-10-04 | Outpatient (CLI) | payer MEDICARE, OTHER ==
--- NOTE | 2020-10-05 16:02 | US ---
EXAM DESCRIPTION: Breast,Right: Ultrasound. CLINICAL HISTORY: 75 yearsFemaleABNORMAL MAMMO. Removal of CAD injection port from the site prior to the mammogram. Almost 2-dimensional focal density upper medial right breast. COMPARISON: Bilateral screening digital breast tomosynthesis September 13. TECHNIQUE: Transcutaneous scanning of the upper inner quadrant left breast utilizing harden-scale and Doppler modes. Scanning performed by the hide and skin processing worker ; observation by Dr. Nguyen. FINDINGS: Scanning at the 12:00 region 10 cm from the nipple. Hypoechoic circumscribed tissue just below the skin surface measuring 1.3 x 1.4 x 0.6 cm with central fluid collection. Nonvascular. Wider than tall orientation. Consistent with scar and minimal central fluid. IMPRESSION: Benign exam. BIRAD CATEGORY: 2 BENIGN FINDINGS. RECOMMENDATIONS: FOLLOW UP: Routine digital bilateral mammographic screening, one year interval from September 2020. Written communication explaining the IMPRESSION and follow-up, will be mailed to the patient and referring health care provider. The FINDINGS and the FOLLOW-UP plan were reviewed in person with the patient after the examination. According to the [employer], yearly mammograms are recommended starting at age 40 and continuing as long as a woman is in good health. Any breast change noted on a breast self-exam should be reported promptly to the patient's healthcare provider. Breast MRI is recommended for women with an approximately 20-25% or greater lifetime risk of breast cancer, including women with a strong family history of breast or ovarian cancer and women who have been treated for Hodgkin's disease. A negative mammographic report should not delay tissue diagnosis in patients with significant clinical history or physical findings. Extremely dense breast tissue limits the sensitivity of digital mammography. Electronically signed by: Saul Nguyen MD 10/05/2020 4:01 PM [facility]
== END ==
LOC: MAMMO 09:59
PROVIDERS: ATTEND Nurse Practitioner Family
DX: R92.8 Other abnormal and inconclusive findings on diagnostic imaging of breast (principal)